=== PATIENT | female | born 1945 | race Asian ===

== ENCOUNTER 2020-11-26 11:57 | Observation (INO) | payer MEDICARE ==
[~2020-11-26] VITALS: Ht 144.8 cm; Wt 59.1 kg
[2020-11-26 12:31] LABS: COLLECTION METHOD CATHETER
[2020-11-26 12:50] LABS: PH 7 (5-8); SQUAMOUS EPITHELIAL None Seen /hpf; URINE APPEARANCE Clear; URINE BACTERIA None Seen /hpf; URINE BILIRUBIN Negative (NEGATIVE); URINE BLOOD Negative (NEGATIVE); URINE COLOR Straw; URINE GLUCOSE 1+ (NEGATIVE); URINE KETONE Negative (NEGATIVE); URINE LEUKOCYTE ESTERASE Negative (NEGATIVE); URINE NITRATE Negative (NEGATIVE); URINE PROTEIN(semi-quant) Negative (NEGATIVE); URINE RBC 0-2 /hpf; URINE UROBILINOGEN Negative (NEGATIVE)
[2020-11-26 12:54] LABS: BASO % 0.3 % (0.0-2.0); EOS % 0.3 % (0-4.0); GRAN # 9.1 (1.4-6.5); GRAN % 77.4 % (42.2-75.2); HEMOGLOBIN 10.9 g/dl (12.5-16.0); LYMPH # 1.9 (1.2-3.4); LYMPH % 16.4 % (20.0-51.0); MEAN CELL VOLUME 93 fl (80.0-100.0); MEAN CORPUSCULAR HEMOGLOBIN 30 pg (27.0-31.0); MEAN CORPUSCULAR HGB CONC 32 g/dl (33.0-37.0); MEAN PLATELET VOLUME 8.8 fl (7.4-10.4); MONO # 0.6 (0.1-0.6); MONO % 5.3 % (1.7-9.3); PLATELET COUNT 237 K/mm3 (130-400); RED BLOOD COUNT 3.69 M/mm3 (4.10-5.30); REDCELL DISTRIBUTION WIDTH-CV 12.5 % (11.5-14.5)
[2020-11-26 12:55] LABS: HEMATOCRIT 34.2 % (37.0-47.0)
[2020-11-26 13:02] LABS: INR 1.1 (0.8-3.0); PROTHROMBIN TIME 12.2 SECONDS (9.7-12.8)
[2020-11-26 13:06] LABS: ALANINE AMINOTRANSFERASE 15 U/L (4-34); ALBUMIN 3.3 gm/dL (3.5-5.0); ALKALINE PHOSPHATASE 51 U/L (50-136); ANION GAP 4 mmol/L (7-16); AST,SGOT 23 U/L (15-37); BILIRUBIN,TOTAL 0.2 mg/dL (0.0-1.0); BLOOD UREA NITROGEN 12 mg/dL (7-17); CALCIUM 8.1 mg/dL (8.4-10.2); CARBON DIOXIDE 24 mmol/L (22-30); CHLORIDE 105 mmol/L (98-107); GLUCOSE 144 mg/dL (74-106); POTASSIUM 3.7 mmol/L (3.4-5.0); SODIUM 134 mmol/L (137-145); TOTAL PROTEIN 5.9 gm/dL (6.4-8.2)
[2020-11-26] MEDS ORDERED: ASPIRIN 81M81 MG/TA2 PO (13:18)
[2020-11-26] MEDS ORDERED: LIORESAL 1010 MG/TAB PO (13:18)
[2020-11-26] MEDS ORDERED: LIPITOR20 MG PO (13:18)
[2020-11-26] MEDS ORDERED: PLAVIX 75MG TAB75 MG PO (13:19)
[2020-11-26] MEDS ORDERED: GLUCOPHAGE500 MG/TAB PO (13:19)
[2020-11-26] MEDS ORDERED: PRINIVIL10 MG PO (13:19)
[2020-11-26] MEDS ORDERED: REQUIP 1MG T1 MG/TAB PO (13:20)
[2020-11-26 13:21] LABS: TROPONIN-I < 0.012 ng/mL (0.000-0.035)
--- NOTE | 2020-11-26 14:30 | NUR ---
PATIENT ADMITED INTO ROOM 346 FROM ER. ER NURSE REPORTED PATIENT HAD SURGERY TODAY OVER AT THE SURGERY CENTER WITH A [facility] PLASTIC SURGEON. PATIENT HAD AN UNRESPONSIVE EPISODE, WAS GIVEN EPI, AND HAD SOME APHASIA IN ER. TOLD ER NURSE, IS NOW "NORMAL" AND RESPONDS APPROPRIATELY. DURING ADMISSION INTO 346, PATIENT BURST INTO TEARS AND SEEMS SCARED. PATIENT IS [place] BUT SPEAKS MALIAN. PATIENT THANKED NURSES FOR OUR CARE. PATIENT WAS COMFORTED. VSS. PATIENT DENIES PAIN OR SOA. COMPRESSION ACEWRAP DRESSING APPLIED TO BREAST IS CD&I. ERIKA DRAIN WITH SMALL AMOUNTS OF BLOOD DRAINAGE NOTED. CANTU TO DD WITH LARGE AMOUNTS OF CLEAR YELLOW URINE NOTED. RIGHT FORARM IV TO INT. WARM WATER AT BEDSIDE, PER PATIENT REQUEST. BS WAS 123 IN ER. ADA DIET ORDERED. PT/OT/ST CONSULTED. HEAD TO TOE ASSESSMENT COMPLETE. PATIENT PLACED ON TELE. ORIENTED TO ROOM. CALL LIGHT IN REACH. BED ALARM ON.
[2020-11-26 14:51] VITALS: BP 134/63; PULSE 77; TEMP 97.4
[2020-11-26 16:00] VITALS: BP 120/54; PULSE 91; TEMP 97.9
--- NOTE | 2020-11-26 16:30 | NUR ---
DR.WOLFE NAVARRO. PATIENT C/O SUDDEN MUSCLE CRAMP IN RLE. PATIENT TAKES REQUIP AT HOME. GAVE NOW DOSE OF REQUIP. PATIENT ALSO C/O SWIFT. GAVE PRN TYLENOL, 1000MG AND APPLIED WARM PACK TO RLE. PATIENT RESTING IN BED TO COMFORT. RLE MUSCLE CRAMP IS SUBSIDING. DAUGHTER FROM [place] AT BEDSIDE.
[2020-11-26 16:59] LABS: PHOSPHOROUS 3.5 mg/dL (2.5-4.5)
--- NOTE | 2020-11-26 18:58 | NUR ---
Received report from Becki. Patient awake in bed. Daughter at bedside. Denies needs at this time.
--- NOTE | 2020-11-26 20:35 | NUR ---
Assesment done. Patient is alert and oriented. She is on room air. With dinorah wrap bandage on her chest. Drained her ERIKA with 30ml of blood. Vazquez catheter draining with clear, yellow urine. She reports pain of 3/10. She was able to follow commands and can communicate well. No slurred speech noted. She has left side weakness. With INT on right forearm, flushes well. Call light within reach.
[2020-11-26 20:50] VITALS: BP 118/54; PULSE 81; TEMP 98.4
--- NOTE | 2020-11-26 22:39 | NUR ---
Went in to check patient. She complains of severe pain with pain score of 10/10. Tylenol given. Instructed her to use her call light if she needs anything and if she's in pain. She verbalizes understanding.
[2020-11-27 00:48] VITALS: BP 128/64; PULSE 70; TEMP 98.3
[2020-11-27 03:26] VITALS: BP 125/62; PULSE 69; TEMP 97.4
--- NOTE | 2020-11-27 04:40 | NUR ---
Patient has pain of 8/10. Tylenol given. She doesn't call if she is in pain and if she needs anything. Checked patient frequently to see what she needs.
[2020-11-27 07:14] LABS: HEMOGLOBIN 11.3 g/dl (12.5-16.0); MEAN CELL VOLUME 91 fl (80.0-100.0); MEAN CORPUSCULAR HEMOGLOBIN 30 pg (27.0-31.0); MEAN CORPUSCULAR HGB CONC 33 g/dl (33.0-37.0); MEAN PLATELET VOLUME 9.2 fl (7.4-10.4); PLATELET COUNT 258 K/mm3 (130-400); REDCELL DISTRIBUTION WIDTH-CV 12.7 % (11.5-14.5)
[2020-11-27 07:26] LABS: HEMATOCRIT 34.7 % (37.0-47.0)
[2020-11-27 07:29] LABS: CALCIUM 8.6 mg/dL (8.4-10.2); CHOLESTEROL RISK RATIO 2.8; CREATININE, serum 0.52 (0.52-1.25); POTASSIUM 4.2 mmol/L (3.4-5.0)
[2020-11-27 07:36] LABS: IRON,SERUM 27 ug/dL (35-150)
[2020-11-27 07:45] LABS: TOTAL IRON BINDING CAPACITY 268 ug/dL (265-497)
[2020-11-27 07:47] VITALS: BP 128/65; PULSE 66; TEMP 98.4
--- NOTE | 2020-11-27 08:00 | NUR ---
PATIENT IS A&O. [place] BUT SPEAKS ZAMBIAN WELL. VSS. RATES PAIN AT 3/10, DENIES NEED FOR PAIN MEDS. AM MEDS GIVEN. CHEST DRESSING IS CD&I WITH ACEWRAP. ERIKA DRAIN TO COMPRESSION WITH SMALL AMOUNTS OF BLOODY DRAINAGE NOTED. CANTU TO DD WITH MOD AMOUNTS OF CLEAR YELLOW URINE NOTED. RIGHT FORARM IV TO INT. NO C/O N/V. HEAD TO TOE ASSESSMENT COMPLETE. CALL LIGHT IN REACH.
--- NOTE | 2020-11-27 08:15 | NUR ---
PATIENT GOING DOWN FOR MRI VIA WC. PATIENT OFF FLOOR.
--- NOTE | 2020-11-27 08:52 | NUR ---
*late entry 11/26* Certified Ophthalmic Surgical Assistant contacted the patient's , Richar to complete intake. The patient lives in [place] with Richar. The patient is independent with ADLs and uses a cane on occassion. The patient has had [facility] in the past. Richar states if the patient is needing home health at discharge they would like to use [facility] once again. The patient's PCP is RENATO Garcia. The patient receives medications from [facility] in [place]. The patient does not have advanced directives. The plan is for the patient to return home at discharge with Richar providing transportation. *Discharge disposition at this time* Home with Richar
--- NOTE | 2020-11-27 09:00 | NUR ---
PATIENT BACK IN ROOM FROM MRI
--- NOTE | 2020-11-27 09:30 | NUR ---
HOSPITALIST TEAM ROUNDING, SEE ORDERS.
[2020-11-27] MEDS ORDERED: LIPITOR 40MG TA40 MG PO (09:41)
--- NOTE | 2020-11-27 10:20 | NUR ---
THERAPY AT BEDSIDE TO EVAL AND TREAT
--- NOTE | 2020-11-27 11:00 | NUR ---
DC'D CANTU PER ORDERS. CANTU CATH TIP INTACT AND PATIENT TOLERATED WELL. NOTED 450CC OF CLEAR YELLOW URINE.
[2020-11-27 11:10] VITALS: BP 148/78; PULSE 75; TEMP 98.6
--- NOTE | 2020-11-27 12:50 | NUR ---
First visit from the cook cashier food prep. No needs right now.
--- NOTE | 2020-11-27 12:58 | NUR ---
GAVE DISCHARGE INSTRUCTIONS, E-SCRIPT SENT, GAVE PATIENT AND ERIKA EDUCATION, AND ANSWERED ALL QUESTIONS/CONCERNS. DC'D RIGHT FORARM IV, COVERED SITE WITH GAUZE & COBAN. DC'D TELE. PATIENT GETTING DRESSED FOR DISCHARGE.
--- NOTE | 2020-11-27 13:15 | NUR ---
PATIENT DISCHARGING HOME VIA WC TO PERSONAL VEHCILE WITH . PATIENT DISCHARGED.
[2020-11-30 22:57] LABS: FOLATE (FOLIC ACID) 10.1 ng/mL (7.0-31.4)
== END 2020-11-27 13:15 | disposition home or self-care (01) ==
LOC: COL.ER 11:57 → SURG 13:54
PROVIDERS: Emergency Medicine; Physician Assistant; Surgery; ADMIT Student in an Organized Health Care Education/Training Program
DX: R47.01 Aphasia (principal); I69.354 Hemiplegia and hemiparesis following cerebral infarction affecting left non-dominant side; I10 Essential (primary) hypertension; E11.9 Type 2 diabetes mellitus without complications; D72.829 Elevated white blood cell count, unspecified; D63.1 Anemia in chronic kidney disease; G25.81 Restless legs syndrome; Z87.891 Personal history of nicotine dependence; G47.00 Insomnia, unspecified; J43.9 Emphysema, unspecified; E78.5 Hyperlipidemia, unspecified; Z79.82 Long term (current) use of aspirin; Z90.710 Acquired absence of both cervix and uterus; Z79.84 Long term (current) use of oral hypoglycemic drugs
CPT/HCPCS: A4314; A9585; G0378; Q9967